=== PATIENT | male | born 1950 | race Caucasian/White ===

== ENCOUNTER → 2017-06-12 | Outpatient (REF) ==
[~2017-06-12] MED LIST: CEPHALEXIN500 M1 PO; NO HOME MEDICATIONS
== END ==
LOC: ZLAB.WCH 17:57
DX: Z01.89 Encounter for other specified special examinations (principal)

== ENCOUNTER → 2017-06-19 | Outpatient (REF) | LOC: ZLAB.WCH 08:39 | DX: Z01.89 Encounter for other specified special examinations (principal) ==

== ENCOUNTER → 2017-06-26 | Outpatient (REF) | LOC: ZLAB.WCH 18:09 | DX: Z01.89 Encounter for other specified special examinations (principal) ==

== ENCOUNTER → 2017-07-03 | Outpatient (REF) | LOC: ZLAB.WCH 08:30 | DX: Z01.89 Encounter for other specified special examinations (principal) ==

== ENCOUNTER → 2017-07-10 | Outpatient (REF) | LOC: ZLAB.WCH 16:10 | DX: Z01.89 Encounter for other specified special examinations (principal) ==